=== PATIENT | male | born 1960 | race Hispanic/Latino ===

== ENCOUNTER 2020-05-05 09:09 | Emergency (ER) | payer SELFPAY ==
[2020-05-05 09:18] VITALS: BP 143/79
[2020-05-05 10:22] LABS: Calcium 9.5 mg/dL (8.4-10.2)
--- NOTE | 2020-05-05 10:24 | Emergency Department Report ---
HPI - General Chief Complaint: Nosebleed Time Seen by Provider: 05/05/20 10:13 - HPI HPI: This is a 59-year-old -[place] male presents to the emergency department with a complaint of left-sided nasal bleeding that started this morning. The patient has a history of ITP and says that when his platelets go low that he begins to have nosebleeding. He also has a history of HIV for which he is compliant with his treatment/medication. Patient has required platelet transfusion in the past and says that his normal hospital is [facility]. He says that the nosebleeding was mild and he packed his left nose with some tissue paper. Patient is currently at [facility] for substance abuse treatment. He says that it is very hot there, he may have some type of allergies, and he blew his nose very hard which started the nosebleed. ED Past Medical Hx - Past Medical History Previous Medical History?: Yes Hx HIV: Yes Additional medical history: ITP history - Surgical History Past Surgical History?: No - Social History Smoking Status: Never Smoker Substance Use Type: None ED Review of Systems ROS: Stated complaint: NOSE BLEED Other details as noted in HPI Comment: All other systems reviewed and negative Constitutional: denies: chills, fever Eyes: denies: eye pain, vision change ENT: epistaxis. denies: ear pain Respiratory: denies: cough, shortness of breath Cardiovascular: denies: chest pain, palpitations Gastrointestinal: denies: abdominal pain, vomiting Genitourinary: denies: dysuria, discharge Musculoskeletal: denies: back pain, arthralgia Skin: denies: rash, lesions Neurological: denies: headache, weakness Physical Exam - Physical Exam Vital Signs: Vital Signs 05/05/20 09:14 Temperature 98.8 F Pulse Rate 85 Respiratory 1 L Rate Blood Pressure 143/79 O2 Sat by Pulse 100 Oximetry ED Course Vital Signs 05/05/20 09:14 Temperature 98.8 F Pulse Rate 85 Respiratory 1 L Rate Blood Pressure 143/79 O2 Sat by Pulse 100 Oximetry ED Medical Decision Making - Lab Data Result diagrams: 05/05/20 09:37 Critical care attestation.: If time is entered above; I have spent that time in minutes in the direct care of this critically ill patient, excluding procedure time. ED Disposition Condition: Stable Referrals: PRIMARY CARE [Primary Care Provider] - 3-5 Days
[2020-05-05 10:25] LABS: Hematocrit 31.9 % (35.5-45.6); Hemoglobin 10.2 gm/dl (11.8-15.2); Mean Corpuscular HGB Conc 32 % (32-34); Mean Corpuscular Volume 72 fl (84-94); Platelet Count 59 K/mm3 (140-440); Red Blood Count 4.42 M/mm3 (3.65-5.03); Red Cell Distribution Width 24.9 % (13.2-15.2)
[2020-05-05] MEDS ORDERED: OXYMETAZOLINE 0.05% NASAL SPRAY NS ONE (10:32)
[2020-05-05] MEDS ORDERED: predniSONE 20 MG TAB PO ONE (10:34)
[2020-05-05 10:59] LABS: Total Cells Counted 100
[2020-05-05 11:00] LABS: Target Cells 3+
[2020-05-05 11:01] LABS: Hypochromasia 1+
[2020-05-05 11:02] LABS: Platelet Estimate Appears Decreased
== END 2020-05-05 15:35 ==
LOC: EDBD 09:09 → ED 09:09
DX: R04.0 Epistaxis (principal); Z53.21 Procedure and treatment not carried out due to patient leaving prior to being seen by health care provider
CPT/HCPCS: 36415; 80048; 85007; 85025; 86850; 86900; 86901; J7512